=== PATIENT | female | born 2005 | race Caucasian/White ===

== ENCOUNTER → 2025-04-13 | Outpatient (CLI) | payer OTHER, SELFPAY | END | disposition home or self-care (01) | LOC: LABSPEC 16:30 | PROVIDERS: Visit Provider Nurse Practitioner Family | DX: Z12.4 Encounter for screening for malignant neoplasm of cervix (principal) | CPT/HCPCS: 88175; G0145 ==

== ENCOUNTER → 2025-09-14 | Outpatient (CLI) | payer OTHER, SELFPAY | END | disposition home or self-care (01) | LOC: LABSPEC 16:16 | PROVIDERS: Visit Provider Nurse Practitioner Family | DX: N94.89 Other specified conditions associated with female genital organs and menstrual cycle (principal) | CPT/HCPCS: 87070; 87205 ==

== ENCOUNTER → 2025-09-15 | Outpatient (CLI) | payer OTHER, SELFPAY ==
--- NOTE | 2025-09-15 17:48 | US_ITS ---
PROCEDURE: PELVIC W/ TRANSVAGINAL REASON FOR EXAM: RT PAIN Right-sided pelvic pain. TECHNIQUE: Procedure Code: [id number] Modality: US Procedure: PELVIC W/ TRANSVAGINAL COMPARISON: None FINDINGS: LMP: September 05, 2025. Measurements: Uterus: 5.1 cm x 4.4 cm x 2.4 cm with a volume of 28.2 mL Endometrial Thickness: 11 mm. This most likely represents patient's menstrual cycle. Right Ovary: 2.4 cm x 1.6 cm x 1.5 cm with a volume of 3.1 mL. Left Ovary: 3.5 cm x 2.4 cm x 1.6 cm with a volume of 15.8 mL. TRANSABDOMINAL: Uterus: Normal size, myometrial echotexture, and contour. Endometrium: 11 mm. Right ovary: Normal size and echotexture. Left ovary: 2.5 cm 2 cm 1.3 cm benign-appearing ovarian cyst. Other: No large pelvic mass identified. Transvaginal sonography was performed to better visualize the endometrium. TRANSVAGINAL: Uterus: Anteverted. Normal contour and myometrial echotexture. Endometrium: Normal echotexture. Right ovary: Normal size and echotexture. Left ovary: 2.5 cm 2 cm 1.3 cm cyst. Other adnexal findings: None. Cul-de-sac: No free intraperitoneal fluid identified. Tenderness: No tenderness US/Pelvic w/ Transvaginal IMPRESSION: 2.5 cm 2 cm 1.3 cm benign-appearing left ovarian cyst. Reading Location: [place] [id number]
== END | disposition home or self-care (01) ==
PROVIDERS: Referring Provider Nurse Practitioner Family; Visit Provider Nurse Practitioner Family
DX: R10.21 Pelvic and perineal pain right side (principal)
CPT/HCPCS: 76830; 76856